=== PATIENT | male | born 1990 | race Caucasian/White ===

== ENCOUNTER 2023-08-09 21:13 | Emergency (ER) | payer MEDICAID, OTHER ==
[~2023-08-09] VITALS: Ht 167.6 cm; Wt 80.6 kg
[2023-08-09 21:38] VITALS: BP 142/80; PULSE 78; RESP 18; TEMP 97.9; O2SAT 96
[2023-08-09] MEDS ORDERED: LIDOCAINE 1% HCL (LOCAL ANESTH.) INJ 20ML MDV ID ONE (22:45)
[2023-08-09] MEDS ORDERED: TETANUS-DIPTH-ACEL PERTUSSIS 0.5ML SYR Tdap IM ONE (22:45)
[2023-08-09] MEDS ORDERED: CEPH500C PO (22:51)
[2023-08-09] MEDS ORDERED: IBUP1TAB5 PO (22:51)
[2023-08-09] MEDS ORDERED: MUPI2OIN2 EX (22:51)
== END 2023-08-10 00:44 | disposition home or self-care (01) ==
LOC: ER 21:13
DX: S01.112A Laceration without foreign body of left eyelid and periocular area, initial encounter (principal); Z79.1 Long term (current) use of non-steroidal anti-inflammatories (NSAID); Z79.899 Other long term (current) drug therapy; W01.198A Fall on same level from slipping, tripping and stumbling with subsequent striking against other object, initial encounter; Y93.89 Activity, other specified; Y92.89 Other specified places as the place of occurrence of the external cause; Y99.8 Other external cause status
CPT/HCPCS: 12013; 90471; 90715; 99283; J2001